=== PATIENT | male | born 1990 | race Caucasian/White ===

== ENCOUNTER 2024-05-20 10:55 | Inpatient (IN) | payer SELFPAY ==
[2024-05-20 10:56] VITALS: BP 150/107; BP 180/99; PULSE 90; RESP 14; RESP 16; TEMP 36.1; TEMP 36.6; O2SAT 100; BMI 22.3
--- NOTE | 2024-05-20 11:20 | EX.ED.SAOD ---
HPI History of Present Illness Chief Complaint: ETOH Intox Informant: patient Onset/Context/Timing Onset: - (Alcohol abuse problem for years. ) Context: Gradual Onset Maximum Severity: Moderate Associated Symptoms Associated Symptoms: Positive for vomiting* Narrative Narrative: 33 yo male hx of ETOH abuse for years. No prior in patient detox. Requesting detox today. Last drink yesterday. Tremors with Nause and some vomiting. Prior similar symptoms: Yes Recent Illness/Hospitalization: No PFSH PFS Medical History (Updated 05/20/24 @ 12:[address] Wayne Nj MD) Acute Crohn's disease Colostomy and enterostomy complications Home Medications ?Medication ?Instructions ?Recorded ?Last Taken ?Type NK 05/20/24 Unknown History Allergy/AdvReac Type Severity Reaction Status Date / Time No Known Allergies Allergy Verified 05/20/24 11:46 Social History Smoking Status: Current every day smoker tobacco type: cigarettes ROS ROS ED ROS Narrative Nausea and vomiting. Constitutional Constitutional ED: Denies chills or fever(s) Eyes Eyes: Denies blurry vision ENT ENT ED: Denies ear pain Cardiovascular Cardiovascular: Denies chest pain Respiratory/Chest Respiratory/Chest: Denies cough or dyspnea Gastrointestinal Gastrointestinal: Reports nausea and vomiting; Denies abdominal pain, constipation, diarrhea or melena Genitourinary Genitourinary ED: Denies dysuria Musculoskeletal Musculoskeletal: Denies arthralgias Integumentary Denies abscess Neurologic Neurologic: Denies headache(s) Psychiatric Psychiatric: Denies anxiety or depression Endocrine Endocrinology: Denies cold intolerance Hematologic/Lymphatic Hematologic/Lymphatic: Denies easy bleeding Allergic/Immunologic Allergic/Immunologic ED: Denies mouth swelling, tongue swelling or urticaria EXAM Physical Exam Narrative Exam Narrative: 33 yo male NAD. VS are stable and afebrile. Sitting upright in bed. H EENT exam unremarkable. Mytrex membranes. Pupils round reactive light. Neck nontender no lymphadenopathy. Lungs clear to auscultation bilaterally. Heart regular rhythm rate about 90 no murmur. Chest wall ribs nontender. Abdomen soft nontender. No peritoneal signs. Moving all 4 extremities. Nontender no edema. Neurologically is awake alert. Answering questions following commands. Cooperative and calm. Const Vital Signs: 05/20/24 10:56 05/20/24 10:56 05/20/24 10:56 Temperature 96.9 F L 97.9 F Temperature Source Temporal Oral Pulse Rate 90 90 90 Respiratory Rate 14 16 16 Blood Pressure 180/99 H 150/107 H 180/99 H Blood Pressure Mean 126 121 126 Blood Pressure Source Monitor Blood Pressure Position Sitting Blood Pressure Location Right Arm Pulse Ox 100 100 100 Oxygen Delivery Method Room Air Room Air Room Air Positive well nourished and well developed; Negative for cachectic, contractures or unkempt General Appearance ED: well developed and NAD; Negative for unkempt, cachectic, contractures or pallor Nutritional Appearance: Negative for cachectic HEENT Reports moist mucous membranes atraumatic; Negative for trauma or tenderness Eyes PERRL and EOMs intact bilaterally General Eye ED: Negative for pale conjunctiva Neck no lymphadenopathy, supple and no JVD Lymph Lymphatic: no lymphadenopathy noted Chest Wall inspection of chest normal and palpation of chest normal Resp normal respiratory effort and clear to auscultation bilaterally Cardio regular rate, regular rhythm, S1 normal heart sound, S2 normal heart sound and no murmurs GI soft to palpation, non-tender, non-distended and no masses Palpation: Negative for tender or guarding Back/Spine no CVA tenderness General Back: Negative for CVA tenderness Cervical Spine: Negative for cervical spine tenderness Thoracic Spine / Upper Back: Negative for thoracic spinal tenderness Lumbar Spine / Lower Back: Negative for lumbar spinal tenderness Extremity General Extremety ED: Negative for edema or tenderness General Extremity: Negative for edema Neuro oriented x3 and CN's II-XII intact bilaterally Sensorium / Orientation: alert, oriented to person, oriented to place and oriented to time; Negative for confused, lethargic or stuporous Speech: speech normal Motor Exam: strength 5/5 throughout Psych mental status grossly normal and thought process normal Appearance: Negative for unkempt Attitude: No belligerent Mood & Affect: Negative for depressed Skin General Skin Exam: Negative for jaundice or pallor Lesions: no lesions Rashes: no rashes MDM MDM MDM Narrative Medical decision making narrative: 33 yo male with ETOH abuse requesting detox. Screening labs and treated with IV Ativan. History & Record Review Discussion w/independent historian: Patient Additional record(s) reviewed:: No prior records Lab Data Attestation: I reviewed the patient's lab results. Lab results narrative: CBC white count of 5. H&H 13 and 41. Platelets 93,000. Chemistry shows sodium 133. Potassium 3.0. Gap 12. Glucose 107. Talk screen positive for cannabis only. Alcohol negative. Labs: Laboratory Results - last 24 hr 05/20/24 05/20/24 11:29 12:00 WBC 5.3 RBC 4.42 L Hgb 13.9 Hct 41.3 MCV 93.4 MCH 31.4 MCHC 33.7 RDW Std Deviation 48.2 H RDW Coeff of Jasmyne 14.0 Plt Count 93 L MPV 10.8 Immature Gran % (Auto) 0.200 Neut % (Auto) 80.8 H Lymph % (Auto) 13.9 L Haakon % (Auto) 4.7 Eos % (Auto) 0.0 Baso % (Auto) 0.4 Absolute Neuts (auto) 4.3 Absolute Lymphs (auto) 0.73 L Nucleated RBC % 0 Ur Drug Screen Comment Discharge Plan Dx/Rx/DC Orders Clinical Impression: ETOH abuse, Admitted to alcohol detoxification center, History of Crohn's disease, Thrombocytopenia Disposition Disposition: Acute Care Hospital [facility]
--- NOTE | 2024-05-20 11:31 | PCM.HP.STD ---
HPI - General General Date of Admission: 05/20/24 HPI Narrative TRESA POSEY, is a 33 M who presents to the hospital requesting detox from alcohol. Last known drink was last evening. He states that he is never gone through detox before in the medical setting though he has tried to manage his withdrawals at home. He states that he is not most sure that he is already set up potential inpatient rehab with an admission date of Thursday but that he need to go through detox before they will accept him. [facility] Medical History (Updated 05/20/24 @ 12:[address] Wayne Nj MD) Acute Crohn's disease Colostomy and enterostomy complications Home Medications ?Medication ?Instructions ?Recorded ?Last Taken ?Type NK 05/20/24 Unknown History Allergy/AdvReac Type Severity Reaction Status Date / Time No Known Allergies Allergy Verified 05/20/24 11:46 Family History (Updated 05/20/24 @ 18:[address] Simba Ratliff MD) Other Heart disease Surgical History (Updated 05/20/24 @ 18:[address] Simba Ratliff MD) Status post colostomy takedown Status post colostomy Social History Smoking Status: Current every day smoker tobacco type: cigarettes ROS Constitutional Constitutional: Denies chills, fatigue, fever(s) or malaise Eyes Eyes: Denies blurry vision ENT HEENT: Denies headache(s) or nasal discharge Cardiovascular Cardiovascular: Denies chest pain, dyspnea on exertion or syncope Respiratory/Chest Respiratory/Chest: Denies cough, shortness of breath at rest or shortness of breath with exertion Gastrointestinal Gastrointestinal: Denies constipation, diarrhea, nausea or vomiting Genitourinary Genitourinary: Denies dysuria Neurologic Neurologic: Denies focal weakness, numbness or tremor(s) Psychiatric Psychiatric: Denies anxiety or depression Vital Signs Vital Signs Vital Signs: 05/20/24 10:56 05/20/24 10:56 Temperature 96.9 F L Temperature Source Temporal Pulse Rate 90 90 Respiratory Rate 14 16 Blood Pressure 180/99 H 150/107 H Blood Pressure Mean 126 121 Pulse Ox 100 100 Oxygen Delivery Method Room Air Room Air Weight Weight: 160 lb 4.417 oz Body Mass Index (BMI) 22.3 Physical Exam Narrative General: Alert, Oriented x3, Cooperative, No apparent distress, restless HEENT: Atraumatic, PERRLA, EOMI, Normocephalic Oral: Moist Mucosa Neck: Supple, No JVD Lungs: Clear to auscultation, Normal air movement, No rhonchi, No wheeze, No rales Cardiovascular: Regular rate, Regular Rhythm, Normal S1, Normal S2, No murmurs Abdomen: Soft, Non Tender, Non-Distended, No Hepato-splenomegaly Extremities: No edema, Capillary Refill Less than 3 Seconds Skin: No rashes, No breakdown Musculoskeletal: No Tenderness to Palpation of Joints or Extremities Neurological: No focal neurological deficits, Motor Exam 5/5 strength throughout, Sensory exam intact to light touch and pain Psych/Mental Status: Normal Affect, Appropriate Results Lab / Micro Data 05/20/24 11:29 05/20/24 11:29 Assessment & Plan Assessment/Plan (1) ETOH abuse: PLAN: Plan 1. Alcohol abuse requesting detox/elevated LFTs/thrombocytopenia/tobacco abuse ? Does not want a nicotine patch ? Continue with the alcohol withdrawal protocol ? Will have him follow-up with 180 ? Plan for transfer hopefully directly to his inpatient rehab unit ? Platelets are 93, unknown baseline though consistent with chronic alcohol use ? Drug screen was positive for cannabis 2. History of Crohn's ? He has had a colostomy and colostomy takedown ? Does not appear to be on any current medications for Crohn's DVT: Ambulation 60 minutes was spent on direct patient care, including documentation as well as chart review and collaboration with colleagues Charges/Coding Visit Charges Inpatient E&M: 29418 Init Hosp L2
[2024-05-20] MEDS: Lorazepam 2 MG/ML WCH Syringe 1 MG IV (11:33)
--- NOTE | 2024-05-20 11:47 | ED.RN ---
IV POSITIONAL BUT FLOWS AND INTACT.
[2024-05-20 12:07] LABS: Absolute Lymphocyte Count 0.73 X10^3/uL (0.83-4.51); Absolute Neutrophil Count 4.3 X10^3/uL (2.0-7.7); Basophil# 0.02 X10^3/uL; Basophil% 0.4 % (0-1); Hematocrit 41.3 % (40-54); Hemoglobin 13.9 g/dL (13.0-16.5); Lymphocyte # 0.73 X10^3/ul (0.83-4.51); Lymphocyte % 13.9 % (19-41); Mean Corp Hgb Conc 33.7 g/dL (32-36); Mean Corpuscular Hgb 31.4 pg (27.0-32.0); Mean Corpuscular Volume 93.4 fL (80-94); Mean Platelet Vol. 10.8 fl (6.2-12.0); Monocyte# 0.25 X10^3/uL; Monocyte% 4.7 % (0-10); NRBC Flagged by Analyzer 0 % (0-5); Neutrophil # 4.26 X10^3/uL (2.7-7.7); Neutrophil % 80.8 % (47-70); POSITIVE COUNT YES; Platelet Count 93 K/mm3 (150-450); RBC Distribution Width SD 48.2 fl (35.1-43.9); Red Blood Count 4.42 M/mm3 (4.6-6.2); White Blood Count 5.3 K/mm3 (4.4-11.0)
[2024-05-20 12:21] LABS: Differential Indicated SCAN CRITERIA MET
[2024-05-20 12:25] VITALS: BP 136/93; PULSE 88; RESP 17; O2SAT 99
[2024-05-20 12:58] VITALS: BP 126/96; PULSE 89; RESP 16; TEMP 36.8; O2SAT 100
[2024-05-20 12:59] LABS: Alcohol, Blood (Medical)-Serum < 3.0 mg/dL
[2024-05-20 13:09] LABS: Amphetamine Urine NEGATIVE (<1000 ng/mL); Barbiturate Urine VISTA NEGATIVE (< 200 ng/mL); Benzodiazepine Urine VISTA NEGATIVE (< 200 ng/mL); Cocaine Urine VISTA NEGATIVE (< 300 ng/mL); Ecstacy Urine VISTA NEGATIVE (< 500 ng/mL); Methadone Urine VISTA NEGATIVE (< 300 ng/mL); Opiates Urine NEGATIVE (< 300 ng/mL); PCP Urine NEGATIVE (< 25 ng/mL); THC Urine VISTA POSITIVE (< 50 ng/mL); Vista UDS pH Range 7
[2024-05-20 13:09] LABS: AST(SGOT) 63 U/L (15-37); Alanine Aminotransfer ALT/SGPT 44 U/L (16-61); Albumin, Serum 3.6 g/dL (3.2-5.0); Alkaline Phosphatase 81 U/L (45-117); Anion Gap 12 (5-15); BUN 4 mg/dL (7-18); BUN/Creat Ratio 5.5 RATIO (10-20); Calcium,Total 9.1 mg/dL (8.5-10.1); Chloride 98 mmol/L (98-107); Creatinine, Serum 0.73 mg/dL (0.70-1.30); EST Glomerular Filtration Rate 130 mL/min (>60); Est Glom Filt Rate - Afr Amer 157 mL/min (>60); Estimated Creatinine Clearance 145.23 ml/min; Globulin 4.3 g/dL (2.2-4.2); Glucose 107 mg/dL (74-106); Protein, Total 7.9 g/dL (6.4-8.2); Sodium Level 133 mmol/L (136-145)
[2024-05-20 13:37] LABS: Differential Comment SCANNED; Platelet Estimate MOD DEC (ADEQ); Red Cell Morphology NORM C+C NORMAL (NORM C&C)
[2024-05-20 13:42] VITALS: BMI 21.8
[2024-05-20 13:56] VITALS: BP 146/94; PULSE 99; RESP 16; TEMP 36.7; O2SAT 98
[2024-05-20] MEDS: Phenobarbital 32.4 MG Tablet 64.8 MG PO ×3 (14:12→21:50)
[2024-05-20] MEDS: hydrOXYzine PAM 25 MG Capsule 50 MG PO ×2 (14:17→21:15)
--- NOTE | 2024-05-20 15:02 | CASEMGMT ---
Social Work- SW met with pt to conduct SDOH assessment. Pt reports no needs, no concerns. SDOH flagged in error. Pt is self-pay status. Pt reports that he applied for medicaid a few weeks ago and is awaiting approval. Pt reports that his plan is to go to [facility] in [place] on Thursday. Pt reports that he was having strong withdrawal symptoms at home and decided to come detox where he can receive medical assistance of needed. Pt agreeable to meeting with ELDER. Pt pleasant and cooperative in conversation. ALEXUS remains available to follow. HORTENSIA Collazo
[2024-05-20 17:55] VITALS: BP 145/93; PULSE 93; RESP 16; TEMP 36.5; O2SAT 99
[2024-05-20] MEDS: Gabapentin 300 MG Capsule PO (18:00)
[2024-05-20] MEDS: Potassium Chloride Oral Tablet 20 MEQ 60 MEQ PO (21:15)
[2024-05-20] MEDS: traZODone 100 MG Tablet PO (21:15)
[2024-05-20 21:53] VITALS: BP 139/99; PULSE 90; RESP 16; TEMP 36.6; O2SAT 100
[2024-05-21 02:09] VITALS: BP 137/86; PULSE 83; RESP 16; TEMP 36.6; O2SAT 99
[2024-05-21] MEDS: Phenobarbital 32.4 MG Tablet 64.8 MG PO ×6 (02:15→21:55)
[2024-05-21] MEDS: hydrOXYzine PAM 25 MG Capsule 50 MG PO ×3 (02:15→21:55)
[2024-05-21] MEDS: Gabapentin 300 MG Capsule PO (06:02)
[2024-05-21 06:09] VITALS: BP 127/73; PULSE 73; RESP 16; TEMP 36.6; O2SAT 98
[2024-05-21] MEDS: Thiamine Hydrochloride 100 MG Tablet PO (09:32)
[2024-05-21] MEDS: Folic Acid 1 MG Tablet PO (09:33)
[2024-05-21 09:34] VITALS: BP 126/94; PULSE 80; RESP 16; TEMP 36.6; O2SAT 100
--- NOTE | 2024-05-21 10:56 | PN.HOSP_ITS ---
Subjective Subjective Doing well, no issues overnight Objective Data Objective Data Vital Signs: Vital Signs Temp Pulse Resp BP Pulse Ox O2 Del Method 97.8 F 80 16 126/94 H 100 Room Air 05/21/24 09:34 05/21/24 09:34 05/21/24 09:34 05/21/24 09:34 05/21/24 09:34 05/21/24 09:34 Oxygen Delivery Method Room Air Weight: 156 lb 4.924 oz Body Mass Index (BMI) 21.8 Medical Nutrition Assessment Dietitian: Malnutrition Criteria Met Start: 05/20/24 14:44 Freq: Status: Active Protocol: Document 05/20/24 14:44 SLA (Rec: 05/20/24 14:44 SLA [email or web address]) Nutrition Malnutrition Evidence of Yes Malnutrition Exists Malnutrition (severe Social/Behavioral/Environmental ): Evidenced By Suboptimal Energy Intake (Severe),Weight Loss (Severe) Clinical Problem Acute Disease or Injury Related Malnutrition Etiology related to etoh abuse Signs/Symptoms as evidenced by 8.7% unintended wt loss and po intake meeting <75% of est nutritional needs x 2 months Status Active Problem Recommendation Dietitian Continue regular diet as ordered Recommendations/ Will order 8 oz strawberry Ensure Plus High Protein w/ Changes lunch and dinner for increased nutrition if consumed. Lab / Micro Data 05/20/24 11:29 05/20/24 11:29 Labs: Laboratory Results - last 24 hr 05/20/24 11:29: WBC 5.3, RBC 4.42 L, Hgb 13.9, Hct 41.3, MCV 93.4, MCH 31.4, MCHC 33.7, RDW Std Deviation 48.2 H, RDW Coeff of Jasmyne 14.0, Plt Count 93 L, MPV 10.8, Immature Gran % (Auto) 0.200, Neut % (Auto) 80.8 H, Lymph % (Auto) 13.9 L, Garrard % (Auto) 4.7, Eos % (Auto) 0.0, Baso % (Auto) 0.4, Absolute Neuts (auto) 4.3, Absolute Lymphs (auto) 0.73 L, Nucleated RBC % 0, Differential Comment SCANNED, Platelet Estimate MOD DEC, RBC Morphology NORM C+C, Sodium 133 L, P otassium 3.0 L, Chloride 98, Carbon Dioxide 24.0, Anion Gap 12, BUN 4 L, Creatinine 0.73, Estim Creat Clear Calc 145.23, Est GFR (MDRD) Af Amer 157, Est GFR (MDRD) Non-Af 130, BUN/Creatinine Ratio 5.5 L, Glucose 107 H, Calcium 9.1, Total Bilirubin 0.80, Direct Bilirubin 0.20, AST 63 H, ALT 44, Alkaline Phosphatase 81, Total Protein 7.9, Albumin 3.6, Globulin 4.3 H, Ethyl Alcohol < 3.0 05/20/24 12:00: Urine Opiates Screen NEGATIVE, Urine Methadone Screen NEGATIVE, Ur Barbiturates Screen NEGATIVE, Ur Phencyclidine Scrn NEGATIVE, Ur Amphetamines Screen NEGATIVE, MDMA (Ecstasy) Screen NEGATIVE, U Benzodiazepines Scrn NEGATIVE, Urine Cocaine Screen NEGATIVE, U Cannabinoids Screen POSITIVE H, Ur Drug Screen Comment Physical Exam Narrative General: Alert, Oriented x3, Cooperative, No apparent distress, restless HEENT: Atraumatic, PERRLA, EOMI, Normocephalic Oral: Moist Mucosa Neck: Supple, No JVD Lungs: Clear to auscultation, Normal air movement, No rhonchi, No wheeze, No rales Cardiovascular: Regular rate, Regular Rhythm, Normal S1, Normal S2, No murmurs Abdomen: Soft, Non Tender, Non-Distended, No Hepato-splenomegaly Extremities: No edema, Capillary Refill Less than 3 Seconds Skin: No rashes, No breakdown Musculoskeletal: No Tenderness to Palpation of Joints or Extremities Neurological: No focal neurological deficits, Motor Exam 5/5 strength throughout, Sensory exam intact to light touch and pain Psych/Mental Status: Normal Affect, Appropriate Assessment & Plan Assessment/Plan (1) ETOH abuse: PLAN: Plan 1. Alcohol abuse requesting detox/elevated LFTs/thrombocytopenia/tobacco abuse ? Does not want a nicotine patch ? Continue with the alcohol withdrawal protocol ? Will have him follow-up with 180 ? Plan for transfer hopefully directly to his inpatient rehab unit ? Platelets are 93, unknown baseline though consistent with chronic alcohol use ? Drug screen was positive for cannabis 2. History of Crohn's ? He has had a colostomy and colostomy takedown ? Does not appear to be on any current medications for Crohn's DVT: Ambulation Charges/Coding Visit Charges Inpatient E&M: 72704 Subs Hosp L2
--- NOTE | 2024-05-21 13:48 | ADDICTION ---
This narrative writer met with PT to conduct ASAM, MSE, AUDIT, DUDIT assessments and to plan for d/c. PT A+Ox4 and participated actively. All assessments completed and placed in PT's chart. PT reports he is scheduled to admit to inpatient treatment on 05/24/24 at [facility]. Pt interested in Vivitrol - nursing staff advised.
[2024-05-21 14:10] VITALS: BP 136/95; PULSE 70; RESP 16; TEMP 36.6; O2SAT 100
[2024-05-21] MEDS: Dicyclomine 10 MG Capsule 20 MG PO (18:18)
[2024-05-21] MEDS: Loperamide 2 MG Capsule PO (18:18)
[2024-05-21 21:45] VITALS: BP 139/84; PULSE 69; RESP 16; TEMP 36.9; O2SAT 100
[2024-05-21] MEDS: traZODone 100 MG Tablet PO (21:56)
[2024-05-22] MEDS: Phenobarbital 32.4 MG Tablet 64.8 MG PO ×6 (02:35→22:09)
[2024-05-22 02:36] VITALS: BP 124/67; PULSE 83; RESP 18; TEMP 36.7; O2SAT 99
[2024-05-22 06:27] VITALS: BP 105/67; PULSE 75; RESP 16; TEMP 36.6; O2SAT 98
[2024-05-22] MEDS: Thiamine Hydrochloride 100 MG Tablet PO (09:08)
[2024-05-22] MEDS: Folic Acid 1 MG Tablet PO (09:08)
[2024-05-22] MEDS: hydrOXYzine PAM 25 MG Capsule 50 MG PO ×2 (09:11→17:35)
[2024-05-22 09:22] VITALS: BP 121/76; PULSE 73; RESP 16; TEMP 36.6; O2SAT 99
--- NOTE | 2024-05-22 09:39 | PCM.PN.HOSP ---
Subjective Subjective Doing better today, he does not want to wait to go directly to his inpatient rehab he wants to go home for so he would like to go home tomorrow regardless Objective Data Objective Data Vital Signs: Vital Signs Temp Pulse Resp BP Pulse Ox O2 Del Method 98 F 73 16 121/76 H 99 Room Air 05/22/24 09:22 05/22/24 09:22 05/22/24 09:22 05/22/24 09:22 05/22/24 09:22 05/22/24 09:22 Oxygen Delivery Method Room Air Weight: 156 lb 4.924 oz Body Mass Index (BMI) 21.8 Intake & Output: Intake and Output for Last 24 Hours 05/21/24 05/22/24 05/23/24 03:59 03:59 03:59 Intake Total 360 / 360 Balance 360 / 360 Medical Nutrition Assessment Dietitian: Malnutrition Criteria Met Start: 05/20/24 14:44 Freq: Status: Active Protocol: Document 05/20/24 14:44 SLA (Rec: 05/20/24 14:44 SLA [email or web address]) Nutrition Malnutrition Evidence of Yes Malnutrition Exists Malnutrition (severe Social/Behavioral/Environmental ): Evidenced By Suboptimal Energy Intake (Severe),Weight Loss (Severe) Clinical Problem Acute Disease or Injury Related Malnutrition Etiology related to etoh abuse Signs/Symptoms as evidenced by 8.7% unintended wt loss and po intake meeting <75% of est nutritional needs x 2 months Status Active Problem Recommendation Dietitian Continue regular diet as ordered Recommendations/ Will order 8 oz strawberry Ensure Plus High Protein w/ Changes lunch and dinner for increased nutrition if consumed. Lab / Micro Data 05/20/24 11:29 05/20/24 11:29 Physical Exam Narrative General: Alert, Oriented x3, Cooperative, No apparent distress HEENT: Atraumatic, PERRLA, EOMI, Normocephalic Oral: Moist Mucosa Neck: Supple, No JVD Lungs: Clear to auscultation, Normal air movement, No rhonchi, No wheeze, No rales Cardiovascular: Regular rate, Regular Rhythm, Normal S1, Normal S2, No murmurs Abdomen: Soft, Non Tender, Non-Distended, No Hepato-splenomegaly Extremities: No edema, Capillary Refill Less than 3 Seconds Skin: No rashes, No breakdown Musculoskeletal: No Tenderness to Palpation of Joints or Extremities Neurological: No focal neurological deficits, Motor Exam 5/5 strength throughout, Sensory exam intact to light touch and pain Psych/Mental Status: Normal Affect, Appropriate Assessment & Plan Assessment/Plan (1) ETOH abuse: PLAN: Plan 1. Alcohol abuse requesting detox/elevated LFTs/thrombocytopenia/tobacco abuse ? Does not want a nicotine patch ? Continue with the alcohol withdrawal protocol ? Will have him follow-up with 180 ? Plan for transfer hopefully directly to his inpatient rehab unit ? Platelets are 93, unknown baseline though consistent with chronic alcohol use ? Drug screen was positive for cannabis 2. History of Crohn's ? He has had a colostomy and colostomy takedown ? Does not appear to be on any current medications for Crohn's DVT: Ambulation Charges/Coding Visit Charges Inpatient E&M: 38362 Subs Hosp L1
[2024-05-22] MEDS: Gabapentin 300 MG Capsule PO (14:26)
[2024-05-22 15:34] VITALS: BP 129/96; PULSE 80; RESP 16; TEMP 36.4; O2SAT 99
[2024-05-22 22:08] VITALS: BP 128/90; PULSE 71; RESP 16; TEMP 36.6; O2SAT 100
[2024-05-22] MEDS: traZODone 100 MG Tablet PO (22:09)
[2024-05-23 04:18] VITALS: BP 120/79; PULSE 70; RESP 14; TEMP 36.4; O2SAT 99
[2024-05-23] MEDS: Phenobarbital 32.4 MG Tablet 64.8 MG PO ×2 (04:19→09:09)
--- NOTE | 2024-05-23 07:27 | DCINST_ITS ---
Discharge Instructions Diet Discharge Diet: No restrictions DC O2, CPAP, BIPAP needs Home O2 Discharge instructions: No Dressing / Incision Discharge Activity: Return to Normal Activity Dressing / Incision Call your doctor if you observe: Fever of 101 or Higher, Shortness of breath, Dizziness, Fainting spells, Swelling in the ankles, Chest pain and Increased palpitations (irregular heartbeat) Follow Up Care Test Results: Test results from this visit will be discussed in further detail at your follow- up appointment, if applicable. Discharge Plan Admission Admit Date/Time: 05/20/24 11:27 Attending Provider: Simba Ratliff Primary Care Provider: Care Physician,Cora Primary Discharge Orders/Prescriptions Prescriptions: No Action NK Referrals / Follow Up: Care Physician,No Primary [Primary Care Provider] - Disposition Disposition (needs filled in before D/C Order can be placed): Home, Self Care
[2024-05-23] MEDS: hydrOXYzine PAM 25 MG Capsule 50 MG PO (09:09)
[2024-05-23] MEDS: Thiamine Hydrochloride 100 MG Tablet PO (09:10)
[2024-05-23] MEDS: Folic Acid 1 MG Tablet PO (09:10)
--- NOTE | 2024-05-23 09:12 | DS.PCM_ITS ---
Providers Date of Admission: 05/20/24 Primary Care Physician: No Primary Care Phys Reason For Visit: ETOH Diagnosis Discharge Diagnosis (1) ETOH abuse: Status: Acute Code(s): F10.10 - Alcohol abuse, uncomplicated Medications at Discharge Home Medications NK 05/20/24 Hospital Course Operations None Procedures None Summary of Care Provided Minutes Spent on Discharge: 32 Hospital Course: Per HPI: TRESA POSEY, is a 33 M who presents to the hospital requesting detox from alcohol. Last known drink was last evening. He states that he is never gone through detox before in the medical setting though he has tried to manage his withdrawals at home. He states that he is not most sure that he is already set up potential inpatient rehab with an admission date of Thursday but that he need to go through detox before they will accept him. Hospital Course: 1. Alcohol abuse requesting detox/elevated LFTs/thrombocytopenia/tobacco abuse? 33-year-old male presented to the hospital requesting alcohol detox. He has plan to go to inpatient rehab tomorrow. He managed the detox protocol very well and requested discharge today. I discussed with him the plan for discharge and he expressed understanding of the risks and benefits of going home today. I did offer him the ability to stay 1 more day to go directly from the hospital to the inpatient unit but he would prefer to go home. Currently awaiting evaluation by 180 as he would potentially like Vivitrol prior to discharge. Physical Exam Narrative General: Alert, Oriented x3, Cooperative, No apparent distress HEENT: Atraumatic, PERRLA, EOMI, Normocephalic Oral: Moist Mucosa Neck: Supple, No JVD Lungs: Clear to auscultation, Normal air movement, No rhonchi, No wheeze, No rales Cardiovascular: Regular rate, Regular Rhythm, Normal S1, Normal S2, No murmurs Abdomen: Soft, Non Tender, Non-Distended, No Hepato-splenomegaly Extremities: No edema, Capillary Refill Less than 3 Seconds Skin: No rashes, No breakdown Musculoskeletal: No Tenderness to Palpation of Joints or Extremities Neurological: No focal neurological deficits, Motor Exam 5/5 strength throughout, Sensory exam intact to light touch and pain Psych/Mental Status: Normal Affect, Appropriate Medical Records Data Medical Nutrition Assessment Dietitian: Malnutrition Criteria Met Start: 05/20/24 14:44 Freq: Status: Active Protocol: Document 05/20/24 14:44 GUILLERMINA (Rec: 05/20/24 14:44 SLA [email or web address]) Nutrition Malnutrition Evidence of Yes Malnutrition Exists Malnutrition (severe Social/Behavioral/Environmental ): Evidenced By Suboptimal Energy Intake (Severe),Weight Loss (Severe) Clinical Problem Acute Disease or Injury Related Malnutrition Etiology related to etoh abuse Signs/Symptoms as evidenced by 8.7% unintended wt loss and po intake meeting <75% of est nutritional needs x 2 months Status Active Problem Recommendation Dietitian Continue regular diet as ordered Recommendations/ Will order 8 oz strawberry Ensure Plus High Protein w/ Changes lunch and dinner for increased nutrition if consumed. Weight / BMI Weight Weight: 156 lb 4.924 oz Body Mass Index (BMI) 21.8 ABG / Lab / Microbiology Data 05/20/24 11:29 05/20/24 11:29 D/C Instructions Discharge Diet: No restrictions Call your doctor if you observe: Fever of 101 or Higher, Shortness of breath, Dizziness, Fainting spells, Swelling in the ankles, Chest pain and Increased palpitations (irregular heartbeat) DC O2, CPAP, BIPAP Needs Home O2 Discharge instructions: No Meaningful Use Info Meaningful Use Meaningful Use Diagnoses (Choose all that apply): None applicable Ischemic Stroke Statin Dosing Therapy Reference: STATIN DOSE THERAPY REFERENCE: * Patients > 75 years receive moderate or high dose statin therapy. * Patients 75 years or YOUNGER should receive HIGH intensity statin dose unless contraindicated. You will be required to document reason for non-treatment if statin daily dose does not meet guidelines. HIGH DOSE STATIN THERAPY DAILY Atorvastatin > than or = to 40 mg Rosuvastatin > than or = to 20 mg Amlodipine + Atorvastatin > than or = to 2.5/40 mg Ezetimibe + Simvastatin 10/80 mg Simvastatin 80mg Discharge Plan Admission Admit Date/Time: 05/20/24 11:27 Attending Provider: Simba Ratliff Primary Care Provider: Care Physician,Cora Primary Discharge Orders/Prescriptions Prescriptions: No Action NK Referrals / Follow Up: Care Physician,No Primary [Primary Care Provider] - Disposition Disposition (needs filled in before D/C Order can be placed): Home, Self Care Charges/Coding Visit Charges Inpatient E&M: 55322 Disch Hosp >30min
[2024-05-23 09:17] VITALS: BP 154/97; PULSE 82; RESP 16; TEMP 36.6; O2SAT 99
[2024-05-23] MEDS: Vivitrol ID Card 1 EACH MC (12:29)
[2024-05-23] MEDS: Naltrexone Microspheres 380 MG SYRINGE IM (12:29)
[2024-05-23] MEDS: Vivitrol Administration Needles 1 EACH MC (12:29)
--- NOTE | 2024-05-23 14:00 | CHAPLAIN ---
Type of Pastoral Visit _x__ Initial Visit ___ Follow-up Visit ___ On-call Visit ___ General Patient Visit ___ Spiritual Assessment ___ Family Conference ___ Bereavement ___ Rapid Response ___ Code Blue ___ Other (describe below) Pastoral Care Referral From _x__ Patient ___ Family ___ Nurse ___ Physician ___ Recapper ___ Senior Game Developer ___ Other (describe below) Sacrament/Intervention _x__ Active listening ___ Anointing ___ Episcopal ___ Bereavement ___ Communion _x__ Misti exploration ___ _x__ Life review _x__ Prayer ___ Reconciliation ___ Sacrament of Sick _x__ Supportive presence ___ Wedding ___ Other (describe below) Pastoral Comments patient is very welcoming and talkative about his life, situation of alcohol abuse, shame, treatment plans, and goals for a better life; pt has two brothers/friends that are instrumental in giving loving support and intervention of getting sober; pt is able to articulate his need for support and the path ahead of him; pt wants to get to rehab tomorrow but will leave today, spending it with his brother who is best support; pt is not voodoo but acknowledges a time when he went to temple as a young person; pt is expressive of time given to listening to his story and to giving encouragement for the future
== END 2024-05-23 13:38 | disposition home or self-care (01) | DRG 896 ==
LOC: ED 11:54 → MS3 12:42
PROVIDERS: Admitting Provider Family Medicine; Emergency Provider Emergency Medicine; Visit Provider Family Medicine
DX: F10.10 Alcohol abuse, uncomplicated (principal); E43 Unspecified severe protein-calorie malnutrition; F17.210 Nicotine dependence, cigarettes, uncomplicated; Y90.0 Blood alcohol level of less than 20 mg/100 ml; Z68.21 Body mass index [BMI] 21.0-21.9, adult; Z87.19 Personal history of other diseases of the digestive system
CPT/HCPCS: 80048; 80076; 80307; 82077; 85025; 97802; 99284; 99406; A4216